=== PATIENT | male | born 1950 ===

== ENCOUNTER 2019-01-16 15:44 | Emergency (ER) ==
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
== END 2019-01-16 17:05 | disposition home or self-care (01) ==
LOC: MADERS 15:44
DX: S29.012A Strain of muscle and tendon of back wall of thorax, initial encounter (principal); S80.01XA Contusion of right knee, initial encounter; J44.9 Chronic obstructive pulmonary disease, unspecified; V89.2XXA Person injured in unspecified motor-vehicle accident, traffic, initial encounter
CPT/HCPCS: 72128